=== PATIENT | female | born 1950 | race Caucasian/White ===

== ENCOUNTER 2016-07-06 06:47 | Outpatient (CLI) ==
[2015-11-13 20:26] VITALS: BMI 27.2
== END 2016-07-06 06:48 | disposition home or self-care (01) ==
LOC: AMBL 06:47
PROVIDERS: ATTEND Internal Medicine Geriatric Medicine
DX: M25.562 Pain in left knee (principal); M79.605 Pain in left leg; W01.0XXA Fall on same level from slipping, tripping and stumbling without subsequent striking against object, initial encounter; Y92.009 Unspecified place in unspecified non-institutional (private) residence as the place of occurrence of the external cause

== ENCOUNTER 2016-08-28 13:18 | Outpatient (CLI) ==
[2015-11-13 20:26] VITALS: BMI 27.2
== END 2016-08-28 13:19 | disposition home or self-care (01) ==
LOC: AMBL 13:18
PROVIDERS: ATTEND Internal Medicine
DX: R06.02 Shortness of breath (principal); J44.9 Chronic obstructive pulmonary disease, unspecified; S72.009D Fracture of unspecified part of neck of unspecified femur, subsequent encounter for closed fracture with routine healing; M79.7 Fibromyalgia; I10 Essential (primary) hypertension

== ENCOUNTER 2016-11-26 16:44 | Emergency (ER) ==
[2016-11-26 16:55] VITALS: BP 132/78; TEMP 100; BMI 25.4
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
[2016-11-26 18:22] LABS: BASOPHILS % (AUTO) 0.5 % (0.0-3.0); EOSINOPHILS % (AUTO) 0.4 % (0.0-7.0); HEMATOCRIT 39.8 % (37.0-47.0); HEMOGLOBIN 14.1 g/dl (12.0-16.0); IMMATURE GRANULOCYTE % (AUTO) 0.3 % (0.0-5.0); LYMPHOCYTES % (AUTO) 13.9 (10.0-50.0); MEAN CORPUSCULAR HEMOGLOBIN 34.9 pg (27.0-31.0); MEAN CORPUSCULAR HGB CONC 35.4 (31.8-35.4); MEAN CORPUSCULAR VOLUME 98.5 fl (81.0-99.0); MONOCYTES # (AUTO) 0.4 K/uL (0.4-2.0); MONOCYTES % (AUTO) 5.4 (0-10); NEUTROPHILS # (AUTO) 5.9 K/ul (2.0-6.9); NEUTROPHILS % (AUTO) 79.5; PLATELET COUNT 198 10^3/uL (140-440); RED BLOOD COUNT 4.04 10^6/ul (4.20-5.40); WHITE BLOOD COUNT 7.39 K/ul (4.6-10.2)
[2016-11-26 18:32] LABS: BILIRUBIN,URINE Negative (NEGATIVE); KETONES,URINE Negative (NEGATIVE); LEUKOCYTE ESTERASE ,URINE Negative (NEGATIVE); NITRITE,URINE Negative (NEGATIVE); PH,URINE 5.5 (5-9); PROTEIN,URINE 2+ (NEGATIVE); URINE, BLOOD 2+ (NEGATIVE)
[2016-11-26 18:34] LABS: ADD URINE MICROSCOPIC YES; BACTERIA,URINE TRACE (NOT PRESENT)
[2016-11-26 18:42] LABS: ALBUMIN/GLOBULIN RATIO 1.48; ANION GAP 12.8; BILIRUBIN,TOTAL 1.14 mg/dL (0.00-1.20); BUN/CREATININE RATIO 19.23; CALCIUM 9.9 mg/dL (8.2-10.2); CREATININE 0.78 mg/dL (0.60-1.30); POTASSIUM 3.8 mmol/L (3.5-5.10); TOTAL PROTEIN 6.7 g/dL (5.8-8.1)
[2016-11-26 18:51] LABS: COCAIN SCREEN,URINE NEGATIVE (NEGATIVE)
== END 2016-11-26 18:57 | disposition home or self-care (01) ==
LOC: ED 16:44
DX: N30.00 Acute cystitis without hematuria (principal); J06.9 Acute upper respiratory infection, unspecified; F11.20 Opioid dependence, uncomplicated; F17.210 Nicotine dependence, cigarettes, uncomplicated; Z79.899 Other long term (current) drug therapy
CPT/HCPCS: 36415; 80053; 80306; 81001; 85025; 99283

== ENCOUNTER 2018-03-09 16:39 | Emergency (ER) ==
[2018-03-09 16:57] VITALS: BP 135/80; TEMP 98.4; BMI 27.3
--- NOTE | 2018-03-09 17:02 | ED.PDOC ---
General ED Provider: Dr. KAHLIL WALLIS Chief Complaint: Bite Stated Complaint: insect bite chest Time Seen by Physician: 16:40 (see photos) Mode of Arrival: Walk-In Information Source: Patient Exam Limitations: No limitations Primary Care Provider: TRES DOOLEY Nursing and Triage Documentation Reviewed and Agree: Yes Does patient meet sepsis criteria?: No System Inflammatory Response Syndrome: Not Applicable Sepsis Protocol: For patient's 13 years and over: Temp is 96.8 and below OR 101 and greater Pulse >90 BPM Resp >20/minute Acutely Altered Mental Status Are patient's symptoms suggestive of a new infection, such as: -Pneumonia -Skin, Soft Tissue -Endocarditis -UTI -Bone, Joint Infection -Implantable Device -Acute Abdominal Infection -Wound Infection -Meningitis -Blood Stream Catheter Infection -Unknown Trauma/Injury Complaint Exam - Bite Injury Complaint/Exam Location of Bite: chest Bite Occured: 3 days ago Symptoms Are: Still present Type of Bite: Reports: Insect Animal Immunized: Reports: N/A Initial Severity: Mild Current Severity: Mild Character: Reports: Puncture, Abrasion Aggravating: Reports: None Alleviating: Reports: None Associated Signs and Symptoms: Reports: Erythema. Denies: Fever, Drainage, Swelling, Lymphadenopathy, Numbness, Tingling, Limited ROM Related History: Reports: Unprovoked Animal Available for Observation: No Animal Control Notified: No Infection/Sepsis Risk Factors: Present: None Bite Findings: Present: Erythema Wound Description: Present: Abrasion Drainage: Present: None Differential Diagnoses: Other (insect bite) Review of Systems - Review Of Systems Constitutional: Reports: No symptoms Eyes: Reports: No symptoms Ears, Nose, Mouth, Throat: Reports: No symptoms Respiratory: Reports: No symptoms Cardiac: Reports: No symptoms GI: Reports: No symptoms : Reports: No symptoms Musculoskeletal: Reports: No symptoms Skin: Reports: Rash (chest see photo) Neurological: Reports: No symptoms Endocrine: Reports: No symptoms Hematologic/Lymphatic: Reports: No symptoms All Other Systems: Reviewed and Negative Past Medical History - Past Medical History Previously Healthy: Yes Endocrine: Reports: Dyslipidemia, Other (fibromyalgia) Cardiovascular: Reports: CAD, Hypertension, CHF, A-Fib Respiratory: Reports: COPD, Asthma Hematological: Reports: None Gastrointestinal: Reports: None Genitourinary: Reports: None Neuro/Psych: Reports: Depression Musculoskeletal: Reports: None, Other (vertebral disk disease) Cancer: Reports: None Last Menstrual Period: menopause Other Pertinent Past Medical History: OPEN HEART SURGERY, PERICARDIAL TISSUE HEART VALVE, PACEMAKER, - Surgical History General Surgical History: Reports: Cholecystectomy, Pacemaker, Orthopedic (hand surgery). Denies: CABG (OPEN HEART SURGERY, PERICARDIAL TISSUE HEART VALVE, PACEMAKER) - Family History Family History: Reports: Unknown - Social History Smoking Status: Current every day smoker, Heavy tobacco smoker Hx Substance Use: No Alcohol Screening: Occasionally - Immunizations Influenza Vaccine within 12 Months: No Pneumococcal Vaccine up to Date: No Physical Exam - Physical Exam Appearance: Well-appearing, No pain distress, Well-nourished Eyes: MARY, EOMI, Conjunctiva clear ENT: Ears normal, Nose normal, Oropharynx normal Respiratory: Airway patent, Breath sounds clear, Breath sounds equal, Respirations nonlabored Cardiovascular: RRR, Pulses normal, No rub, No murmur GI/: Soft, Nontender, No masses, Bowel sounds normal, No Organomegaly Musculoskeletal: Normal strength, ROM intact, No edema, No calf tenderness Skin: Warm, Dry (abrasion chest) Neurological: Sensation intact, Motor intact, Reflexes intact, Cranial nerves intact, Alert, Oriented Psychiatric: Affect appropriate, Mood appropriate Critical Care Note - Critical Care Note Total Time (mins): 0 Course - Course Vital Signs: Temp Pulse Resp BP Pulse Ox 03/09/18 16:39 98.4 F 93 H 20 135/80 95 Departure - Departure Time of Disposition: 17:02 Disposition: HOME SELF-CARE Discharge Problem: Insect bite Qualifiers: Encounter type: initial encounter Site of insect bite: thoracic wall Site of insect bite of thoracic wall: front wall Instructions: Insect Bite or Sting (ED) Condition: Good Pt referred to PMD for follow-up: Yes IPMP verified?: No Additional Instructions: Please call your Family Physician as soon as possible to schedule a follow-up appointment. Allergies/Adverse Reactions: Allergies No Known Allergies Allergy (Verified 03/09/18 16:48) Home Medications: Ambulatory Orders Losartan Potassium [Cozaar] 50 mg PO DAILY 12/13/12 Rosuvastatin Calcium [Crestor] 10 mg PO BEDTIME 12/13/12 Oxycodone-Acetaminophen 10-325 [Percocet 10-325] 1 tab PO QID 07/07/13 Latanoprost [Xalatan] 1 drop EACHEYE BEDTIME 04/25/16 Ipratropium [place] 0.02% Neb [Atrovent 0.02% Neb] 1 vial NEB QID 11/13/15 Bupropion HCl [Bupropion HCl Sr] 150 mg PO Q12HR 03/09/18 Metoprolol Succinate 100 mg PO DAILY 03/09/18 Warfarin Sodium 5 mg PO DAILY 03/09/18
== END 2018-03-09 17:09 | disposition home or self-care (01) ==
LOC: ED 16:39
DX: S20.369A Insect bite (nonvenomous) of unspecified front wall of thorax, initial encounter (principal); L53.9 Erythematous condition, unspecified; W57.XXXA Bitten or stung by nonvenomous insect and other nonvenomous arthropods, initial encounter
CPT/HCPCS: 99282

== ENCOUNTER 2018-08-24 09:21 | Outpatient (CLI) | END 2018-08-24 09:41 | disposition short-term general hospital (02) | LOC: AMBL 09:21 | PROVIDERS: ATTEND Emergency Medicine | DX: R06.02 Shortness of breath (principal); J44.9 Chronic obstructive pulmonary disease, unspecified; R06.2 Wheezing; R00.0 Tachycardia, unspecified ==